=== PATIENT | female | born 1995 | race Caucasian/White ===

== ENCOUNTER 2024-04-13 14:20 | Emergency (ER) | payer OTHER, SELFPAY ==
[2024-04-13 14:24] VITALS: BP 143/94; PULSE 114; TEMP 37.2; O2SAT 97
--- NOTE | 2024-04-13 14:31 | XR_ITS ---
The [address] [address] Patient Name: NESHA AVALOS MRN: [id number] date: 1995 Sex: F Assigned Patient Location: ER Current Patient Location: ER Accession/Order Number: [id number] Exam Date: 04/13/2024 15:00 Report Date: 04/13/2024 15:43 At the request of: MAURICE BLOUNT Procedure: XR chest 2V EXAM: XR chest 2V HISTORY: Cough COMPARISON: None. TECHNIQUE: Frontal view of the chest. FINDINGS: No focal consolidations or pleural effusions. Cardiomediastinal silhouette is unremarkable. Visualized osseous structures are unremarkable. XR/XR chest 2V IMPRESSION: No acute disease. Electronically authenticated by: PRATIK PEREZ Date: 04/13/2024 15:43
[2024-04-13 14:48] VITALS: PULSE 107
[2024-04-13 14:50] LABS: Influenza Virus A Antigen Negative; Influenza Virus B Antigen Negative; Internal Control Within Normal Limits; SARS-CoV-2 Ag NEGATIVE (NEGATIVE)
--- NOTE | 2024-04-13 14:56 | ED.GENADUL1 ---
HPI HPI - General Adult General Chief complaint: Upper Respiratory Infection Stated complaint: URTI COMPLAINTS Time Seen by Provider: 04/13/24 14:23 Source: patient Mode of arrival: walk-in History of Present Illness HPI narrative: Patient presents to ED complaining of upper respiratory infection symptoms. Patient's had a cough and some ear pressure for the past few days. She does have a history of asthma and she feels like she is wheezing a little bit. She said her inhaler does not seem to be working and her father has her nebulizer machine in [place]. Her heart rate is slightly elevated. Temp of 99. Oxygen saturation is 97. Related Data Previous Rx's ?Medication ?Instructions ?Recorded azithromycin 500 mg tablet See Rx Instructions PO .COMPLEX #9 04/13/24 (Zithromax TRI-NOLVIA) tabs ipratropium 0.5 mg-albuterol 3 mg 3 ml inhalation Q6H PRN wheezing 04/13/24 (2.5 mg base)/3 mL nebulization #90 mL soln prednisone 20 mg tablet 20 mg PO BID #20 tabs 04/13/24 Allergies Allergy/AdvReac Type Severity Reaction Status Date / Time doxycycline Allergy Severe Nausea Verified 04/13/24 14:29 NSAIDS (Non-Steroidal Allergy Severe Anaphylaxis Verified 04/13/24 14:29 Anti-Inflamma Penicillins Allergy Severe Anaphylaxis Verified 04/13/24 14:29 Opioid HPI Opioid Management Most Recent Opioid Data: Last ED Pain Assessment 04/13/24 14:30 Review of Systems ROS Status of ROS 10 or more systems reviewed and unremarkable except as noted in history and below Exam Narrative Exam Narrative: Time Seen: [] Vital Signs: [Per nurse's notes.] General: [Alert] Skin: [Warm, dry, no rash.] Head: [Normocephalic, atraumatic.] Neck: [Supple, trachea midline.] Eye: [Pupils are equal, round and reactive to light, extraocular movements are intact, normal conjunctiva.] Ears, nose, mouth and throat: oral mucosa moist. Cardiovascular: [Regular rate and rhythm, no murmur.] Respiratory: [Mild inspiratory expiratory wheezing bilaterally, no acute respiratory distress, respirations are non-labored, breath sounds are equal.] Chest wall: [No tenderness, no deformity.] Gastrointestinal: [Soft, nontender, non distended, normal bowel sounds.] MSK: 5 out of 5 muscle strength x 4 extremities no calf pain or edema Lymphatics: [No lymphadenopathy.] Psychiatric: [Cooperative, appropriate mood & affect.] Neurological: [Alert and oriented to person, place, time, and situation, no focal neurological deficit observed.] Constitutional Vital Signs, click to edit/add: Last Vital Signs Temp 99.0 F 04/13/24 14:24 Pulse 107 H 04/13/24 14:48 Resp 16 04/13/24 14:24 BP 143/94 H 04/13/24 14:24 Pulse Ox 97 04/13/24 14:24 O2 Del Method Room Air 04/13/24 14:48 Course Vital Signs Vital signs: Vital Signs Temperature 99.0 F 04/13/24 14:24 Pulse Rate 114 H 04/13/24 14:24 Respiratory Rate 16 04/13/24 14:24 Blood Pressure 143/94 H 04/13/24 14:24 Pulse Oximetry 97 04/13/24 14:24 Oxygen Delivery Method Room Air 04/13/24 14:24 Temperature 99.0 F 04/13/24 14:24 Pulse Rate 107 H 04/13/24 14:48 Respiratory Rate 16 04/13/24 14:24 Blood Pressure 143/94 H 04/13/24 14:24 Pulse Oximetry 97 04/13/24 14:24 Oxygen Delivery Method Room Air 04/13/24 14:48 Medical Decision Making MDM Narrative Medical decision making narrative: Patient's chest x-ray does not show any acute pneumonia. Patient reports productive cough however. She does have a history of asthma and wheezing on exam. She feels better with DuoNeb treatment. She said her Inhaler was not working well at home. I wrote a prescription for a nebulizer machine with DuoNeb medication. Also steroids and a Z-Nolvia. Return to ED if worsening symptoms otherwise follow-up outpatient. Differential Diagnosis Differential Diagnosis: Pneumonia upper respiratory infection bronchitis Medical Records Medical records reviewed: Yes I reviewed the patient's medical records Lab Data Lab results reviewed: Yes I reviewed the patient's lab results Labs: Lab Results 04/13/24 Range/Units 14:25 Influenza Type A Ag Negative Influenza Type B Ag Negative SARS-CoV-2 Ag (CV2AG) Negative (NEGATIVE) Imaging Data Chest x-ray: Radiologist's impression: ITS Impressions Chest X-Ray 04/13/24 14:31 IMPRESSION: No acute disease. Electronically authenticated by: PRATIK PEREZ Date: 04/13/2024 15:43 Discharge Plan Discharge Stand Alone Forms: Portal Instructions Chief Complaint: Upper Respiratory Infection Clinical Impression: Upper respiratory infection, Bronchitis Patient Disposition: Home, Self-Care Time of Disposition Decision: 15:51 Condition: Good Mode of Transportation: Private Vehicle Prescriptions / Home Meds: New azithromycin [Zithromax TRI-NOLVIA] 500 mg tablet See Rx Instructions .ROUTE .COMPLEX Qty: 9 0RF Rx Instructions: For 250 mg dose pack: take 500 mg today (day 1), then 250 mg for 4 days (days 2-5) prednisone 20 mg tablet 20 mg PO BID Qty: 20 0RF Rx Instructions: SEE TAPER: 60 mg po daily x 2 days 50 mg x 2 days 40 mg x 2 days 30 mg x 2 days 20 mg x 2 days 10 mg x 2 days ipratropium-albuterol 0.5 mg-3 mg(2.5 mg base)/3 mL solution for nebulization 3 ml inhalation Q6H PRN (Reason: wheezing) Qty: 90 0RF Print Language: Kazakh Instructions: Acute Bronchitis (ED) Referrals: Physician,Non-Staff, MD [Primary Care Provider] - 1 week
[2024-04-13 16:01] VITALS: BP 133/79; PULSE 102; TEMP 37.3; O2SAT 97
== END 2024-04-13 16:04 | disposition home or self-care (01) ==
PROVIDERS: Emergency Provider Emergency Medicine
DX: J06.9 Acute upper respiratory infection, unspecified (principal); J45.909 Unspecified asthma, uncomplicated; Z20.822 Contact with and (suspected) exposure to COVID-19
CPT/HCPCS: 71046; 87804; 87811; 94640; 99284; 99406

== ENCOUNTER 2024-12-03 12:09 | Emergency (ER) | payer OTHER, SELFPAY ==
[2024-12-03 12:18] VITALS: BP 121/79; PULSE 92; TEMP 36.8; O2SAT 99; BMI 41.0
--- NOTE | 2024-12-03 13:00 | ED.GENADUL1 ---
HPI HPI - General Adult General Chief complaint: Shortness of Breath/Dyspnea Stated complaint: URTI COMPLAINTS Time Seen by Provider: 12/03/24 12:11 Source: patient Mode of arrival: walk-in Limitations: no limitations History of Present Illness HPI narrative: Patient presents to ED complaining of shortness of breath and wheezing. Patient has a history of asthma. She said she has used her inhaler and it is empty now because she has had to use it a lot more than her normal. She said she started with a cough and cold symptoms about a week ago and its progressively gotten worse. She has tried [id number] medications without help. She does have a history of asthma but is not on steroids chronically. She does not have a nebulizer machine at home she has an inhaler. She has had to be admitted in the past for her asthma. She denies coughing up anything thick or green but states that it is coming out of her nose. She said she gets chronic sinus infections. Patient states she had any fevers. Her heart rate is in the 90s here her respirations are increased in the mid 20s. No fever here and she is 96 to 99% on room air. No acute respiratory distress but she is wheezing. Related Data Home Medications ?Medication ?Instructions ?Recorded ?Confirmed albuterol sulfate 90 mcg/actuation 1 puff inhalation Q4H PRN 12/03/24 12/03/24 aerosol inhaler shortness of breath or wheezing cetirizine 10 mg tablet 20 mg PO Q12H 12/03/24 12/03/24 dextroamphetamine-amphetamine ER 10 mg PO QAM 12/03/24 12/03/24 10 mg 24hr capsule,extend release famotidine 20 mg tablet 20 mg PO BID 12/03/24 12/03/24 fluticasone propionate 93 2 spray intranasal .QD 12/03/24 12/03/24 mcg/actuation breath activated aerosol (Xhance) montelukast 10 mg tablet 10 mg PO .QHS 12/03/24 12/03/24 Previous Rx's ?Medication ?Instructions ?Recorded albuterol sulfate 90 mcg/actuation 1 inh inhalation Q6H PRN shortness 12/03/24 aerosol inhaler of breath or wheezing #8.5 grams ipratropium 0.5 mg-albuterol 3 mg 3 ml inhalation Q6H PRN shortness 12/03/24 (2.5 mg base)/3 mL nebulization of breath or wheezing #90 mL soln levofloxacin 500 mg tablet 500 mg PO DAILY 7 days #7 tabs 12/03/24 methylprednisolone 4 mg tablets in 4 mg PO DAILY #21 ea 12/03/24 a dose pack (Medrol (Michel)) Allergies Allergy/AdvReac Type Severity Reaction Status Date / Time doxycycline Allergy Severe Nausea Verified 12/03/24 13:42 NSAIDS (Non-Steroidal Allergy Severe Anaphylaxis Verified 12/03/24 13:42 Anti-Inflamma Penicillins Allergy Severe Anaphylaxis Verified 12/03/24 13:42 Opioid HPI Opioid Management Most Recent Opioid Data: No Data to Display Review of Systems ROS Status of ROS 10 or more systems reviewed and unremarkable except as noted in history and below PFSH PFSH Social History Little interest or pleasure in doing things: not at all Feeling down, depressed, or hopeless: not at all Exam Narrative Exam Narrative: Time Seen: [] Vital Signs: [Per nurse's notes.] General: [Alert] Skin: [Warm, dry, no rash.] Head: [Normocephalic, atraumatic.] Neck: [Supple, trachea midline.] Eye: [Pupils are equal, round and reactive to light, extraocular movements are intact, normal conjunctiva.] Ears, nose, mouth and throat: oral mucosa moist. Cardiovascular: [Regular rate and rhythm, no murmur.] Respiratory: [Inspiratory expiratory wheezing, tachypnea, no acute respiratory distress. No hypoxia. Gastrointestinal: [Soft, nontender, non distended, normal bowel sounds.] MSK: 5 out of 5 muscle strength x 4 extremities no calf pain or edema Psychiatric: [Cooperative, appropriate mood & affect.] Neurological: [Alert and oriented to person, place, time, and situation, no focal neurological deficit observed.] Constitutional Vital Signs, click to edit/add: Last Vital Signs Temp 98.2 F 12/03/24 12:18 Pulse 93 H 12/03/24 13:01 Resp 16 12/03/24 13:01 BP 121/79 12/03/24 12:18 Pulse Ox 99 12/03/24 12:18 O2 Del Method Room Air 12/03/24 13:01 Course Vital Signs Vital signs: Vital Signs Temperature 98.2 F 12/03/24 12:18 Pulse Rate 92 H 12/03/24 12:18 Respiratory Rate 24 H 12/03/24 12:18 Blood Pressure 121/79 12/03/24 12:18 Pulse Oximetry 99 12/03/24 12:18 Oxygen Delivery Method Room Air 12/03/24 12:18 Temperature 98.2 F 12/03/24 12:18 Pulse Rate 93 H 12/03/24 13:01 Respiratory Rate 16 12/03/24 13:01 Blood Pressure 121/79 12/03/24 12:18 Pulse Oximetry 99 12/03/24 12:18 Oxygen Delivery Method Room Air 12/03/24 13:01 Medical Decision Making MDM Narrative Medical decision making narrative: Patient was feeling better after her first treatment but still slightly wheezy. I did give her a second DuoNeb here in ED and she was sounding much more clear and she was more comfortable. Chest x-ray shows left upper lobe pneumonia. Patient was given IV antibiotics here prior to discharge. Patient will be sent home with a prescription for oral antibiotics a steroid pack a new rescue inhaler because she ran out of hers. She will also be given DuoNeb solution. She does have a nebulizer machine at home and she took the tubing from here because hers was old. Return to ED if worsening shortness of breath or difficulty breathing. Follow-up with family doctor. Take the medications as directed. Patient is comfortable with care plan for home Differential Diagnosis Differential Diagnosis: Pneumonia exacerbation and URI COVID flu Medical Records Medical records reviewed: Yes I reviewed the patient's medical records Lab Data Lab results reviewed: Yes I reviewed the patient's lab results Labs: Lab Results 12/03/24 12/03/24 Range/Units 13:30 13:36 WBC 7.1 (4.0-11.0) 10^3/uL RBC 4.98 (4.20-5.40) 10^6/uL Hgb 13.9 (12.0-16.0) g/dL Hct 41.6 (36.0-48.0) % MCV 83.5 (81.0-99.0) fL MCH 27.9 (26.7-34.0) pg MCHC 33.4 (29.9-35.2) g/dL RDW 12.6 (11.0-15.0) % Plt Count 317 (150-450) 10^3/uL MPV 10.1 (9.5-13.5) fL Neut % (Auto) 46.5 (43.0-75.0) % Lymph % (Auto) 36.9 (20.5-60.0) % [place] % (Auto) 7.0 (1.7-12.0) % Eos % (Auto) 9.1 H (0.9-7.0) % Baso % (Auto) 0.4 (0.2-2.0) % Neut # (Auto) 3.3 (1.4-6.5) 10^3/uL Lymph # (Auto) 2.6 (1.2-3.8) 10^3/uL [place] # (Auto) 0.5 (0.3-0.8) 10^3/uL Eos # (Auto) 0.7 (0.0-0.7) 10^3/uL Baso # (Auto) 0.0 (0.0-0.1) 10^3/uL Abs Immat Gran (auto) 0.01 (0.00-0.03) 10^3/uL Imm/Tot Granulo (auto) 0.1 (0.0-0.5) % Sodium 136 (136-145) mmol/L Potassium 3.7 (3.5-5.1) mmol/L Chloride 101 (98-107) mmol/L Carbon Dioxide 28.7 (21.0-32.0) mmol/L Anion Gap 10.0 BUN 20.0 H (7.0-18.0) mg/dL Creatinine 1.03 H (0.55-1.02) mg/dL Est GFR ( Amer) >60 (>=60 mL/min/1.73m^2) Est GFR (Non-Af Amer) >60 (>=60 mL/min/1.73m^2) BUN/Creatinine Ratio 19.4 Glucose 98 (74-106) mg/dL Calcium 9.7 (8.5-10.1) mg/dL Total Bilirubin 0.3 (0.2-1.0) mg/dL AST 13 L (15-37) U/L ALT 26 (14-59) U/L Alkaline Phosphatase 104 (46-116) U/L Total Protein 8.5 H (6.4-8.2) g/dL Albumin 3.5 (3.4-5.0) g/dL Globulin 5.0 g/dL Albumin/Globulin Ratio 0.7 Influenza Type A Ag Negative Influenza Type B Ag Negative SARS-CoV-2 Ag (CV2AG) Negative (NEGATIVE) Imaging Data Chest x-ray: Attestation: I have reviewed the pertinent imaging results. Discharge Plan Discharge Chief Complaint: Shortness of Breath/Dyspnea Clinical Impression: Pneumonia, Asthma Patient Disposition: Home, Self-Care Time of Disposition Decision: 15:36 Condition: Good Mode of Transportation: Private Vehicle Prescriptions / Home Meds: New albuterol sulfate 90 mcg/actuation HFA aerosol inhaler 1 inh inhalation Q6H PRN (Reason: shortness of breath or wheezing) Qty: 8.5 0RF methylprednisolone [Medrol (Michel)] 4 mg tablets,dose pack 4 mg PO DAILY Qty: 21 0RF Rx Instructions: disp one michel use as directed ipratropium-albuterol 0.5 mg-3 mg(2.5 mg base)/3 mL solution for nebulization 3 ml inhalation Q6H PRN (Reason: shortness of breath or wheezing) Qty: 90 0RF levofloxacin 500 mg tablet 500 mg PO DAILY 7 Days Qty: 7 0RF No Action cetirizine 10 mg tablet 20 mg PO Q12H famotidine 20 mg tablet 20 mg PO BID dextroamphetamine-amphetamine 10 mg capsule,extended release 24hr 10 mg PO QAM montelukast 10 mg tablet 10 mg PO .QHS albuterol sulfate 90 mcg/actuation HFA aerosol inhaler 1 puff INHALATION Q4H PRN (Reason: shortness of breath or wheezing) Xhance 93 mcg/actuation aerosol breath activated 2 spray INTRANASAL .QD Print Language: Divehi Instructions: Asthma (ED), Pneumonia (ED) Referrals: [facility] [Primary Care Provider] - 1 week
[2024-12-03 13:01] VITALS: PULSE 93
[2024-12-03] MEDS: IPRATROPIUM/ALBUTEROL SULFATE 3 ML AMPUL.NEB IH ×2 (13:01→15:06)
[2024-12-03] MEDS: DEXAMETHASONE SOD PHOS 10 MG/ML VIAL IV (13:47)
[2024-12-03 13:49] LABS: Basophils Percent Auto 0.4 % (0.2-2.0); Eosinophils Absolute Auto 0.7 10^3/uL (0.0-0.7); Eosinophils Percent Auto 9.1 % (0.9-7.0); Hematocrit 41.6 % (36.0-48.0); Hemoglobin 13.9 g/dL (12.0-16.0); Immature Granulocytes Abs Auto 0.01 10^3/uL (0.00-0.03); Immature Granulocytes Pct Auto 0.1 % (0.0-0.5); Lymphocytes Absolute Auto 2.6 10^3/uL (1.2-3.8); Lymphocytes Percent Auto 36.9 % (20.5-60.0); Mean Corpuscular HGB Conc 33.4 g/dL (29.9-35.2); Mean Corpuscular Hemoglobin 27.9 pg (26.7-34.0); Mean Corpuscular Volume 83.5 fL (81.0-99.0); Mean Platelet Volume 10.1 fL (9.5-13.5); Monocytes Absolute Auto 0.5 10^3/uL (0.3-0.8); Neutrophils Absolute Auto 3.3 10^3/uL (1.4-6.5); Neutrophils Percent Auto 46.5 % (43.0-75.0); Platelet Count 317 10^3/uL (150-450); Red Blood Count 4.98 10^6/uL (4.20-5.40); Red Cell Distribution Width 12.6 % (11.0-15.0); White Blood Count 7.1 10^3/uL (4.0-11.0)
[2024-12-03 13:55] LABS: Influenza Virus A Antigen Negative; Influenza Virus B Antigen Negative; Internal Control Within Normal Limits; SARS-CoV-2 Ag NEGATIVE (NEGATIVE)
[2024-12-03 14:03] LABS: Alanine Aminotransferase 26 U/L (14-59); Albumin Globulin Ratio 0.7; Albumin Level 3.5 g/dL (3.4-5.0); Alkaline Phosphatase 104 U/L (46-116); Aspartate Amino Transferase 13 U/L (15-37); BUN Creatinine Ratio 19.4; Bilirubin Total 0.3 mg/dL (0.2-1.0); Calcium 9.7 mg/dL (8.5-10.1); Carbon Dioxide 28.7 mmol/L (21.0-32.0); Chloride 101 mmol/L (98-107); Estimated GFR (African America >60 (>=60 mL/min/1.73m^2); Estimated GFR (Non-African Ame >60 (>=60 mL/min/1.73m^2); Glucose 98 mg/dL (74-106); Potassium 3.7 mmol/L (3.5-5.1); Sodium 136 mmol/L (136-145); Total Protein 8.5 g/dL (6.4-8.2)
[2024-12-03] MEDS: LEVOFLOXACIN IN DEXTROSE 5 % 750 MG/150 ML PREMIX 100 MG IV (15:02)
[2024-12-03 16:31] VITALS: BP 153/94; PULSE 103; O2SAT 95
== END 2024-12-03 16:47 | disposition home or self-care (01) ==
PROVIDERS: Emergency Provider Emergency Medicine
DX: J18.9 Pneumonia, unspecified organism (principal); J45.909 Unspecified asthma, uncomplicated
CPT/HCPCS: 36415; 71045; 80053; 85025; 87804; 87811; 94640; 96365; 96366; 96375; 99285; J1100

== ENCOUNTER 2025-01-03 13:52 | Emergency (ER) | payer OTHER, SELFPAY ==
[2025-01-03 13:56] VITALS: BP 167/99; PULSE 89; TEMP 36.7; O2SAT 98; BMI 34.4
--- NOTE | 2025-01-03 14:06 | ED.GENADUL1 ---
HPI HPI - General Adult General Chief complaint: Extremity Injury, Upper Stated complaint: Extremity Injury, Upper Time Seen by Provider: 01/03/25 13:53 Source: patient Mode of arrival: walk-in Limitations: no limitations History of Present Illness HPI narrative: 29-year-old female presents for pain to the left hand, specifically at the fifth finger and fifth metacarpal area. 1 hour ago she was fishing and she fell and hit it on rocks. No other injury was sustained. The pain is worse when she moves. Related Data Home Medications ?Medication ?Instructions ?Recorded ?Confirmed albuterol sulfate 90 mcg/actuation 1 puff inhalation Q4H PRN 12/03/24 12/03/24 aerosol inhaler shortness of breath or wheezing cetirizine 10 mg tablet 20 mg PO Q12H 12/03/24 12/03/24 dextroamphetamine-amphetamine ER 10 mg PO QAM 12/03/24 12/03/24 10 mg 24hr capsule,extend release famotidine 20 mg tablet 20 mg PO BID 12/03/24 12/03/24 fluticasone propionate 93 2 spray intranasal .QD 12/03/24 12/03/24 mcg/actuation breath activated aerosol (Xhance) montelukast 10 mg tablet 10 mg PO .QHS 12/03/24 12/03/24 Previous Rx's ?Medication ?Instructions ?Recorded albuterol sulfate 90 mcg/actuation 1 inh inhalation Q6H PRN shortness 12/03/24 aerosol inhaler of breath or wheezing #8.5 grams hydrocodone-homatropine 5 mg-1.5 5 ml PO Q6H PRN cough #60 mL 12/03/24 mg/5 mL (5 mL) oral solution (Hycodan) ipratropium 0.5 mg-albuterol 3 mg 3 ml inhalation Q6H PRN shortness 12/03/24 (2.5 mg base)/3 mL nebulization of breath or wheezing #90 mL soln levofloxacin 500 mg tablet 500 mg PO DAILY 7 days #7 tabs 12/03/24 methylprednisolone 4 mg tablets in 4 mg PO DAILY #21 ea 12/03/24 a dose pack (Medrol (Michel)) Allergies Allergy/AdvReac Type Severity Reaction Status Date / Time doxycycline Allergy Severe Nausea Verified 12/03/24 13:42 NSAIDS (Non-Steroidal Allergy Severe Anaphylaxis Verified 12/03/24 13:42 Anti-Inflamma Penicillins Allergy Severe Anaphylaxis Verified 12/03/24 13:42 Opioid HPI Opioid Management Most Recent Opioid Data: Last Pain Scale 4 01/03/25 14:02 01/03/25 Review of Systems ROS Narrative A ten point review of systems is negative except as noted above. PFSH PFSH Social History Little interest or pleasure in doing things: not at all Feeling down, depressed, or hopeless: not at all Exam Narrative Exam Narrative: Nurses note and vital signs reviewed and patient is not hypoxic. General: The patient appears well and in no apparent distress. Patient is resting comfortably on cart. Skin: Warm, dry, no pallor noted. There is no rash noted. Head: Normocephalic, atraumatic Eye: Normal conjunctiva, no drainage Ears, Nose, Mouth, and Throat: oral mucosa is moist. Nares patent. Cardiovascular: Regular Rate and Rhythm Respiratory: Patient is in no distress, no accessory muscle use Back: non-tender GI: Soft and nontender Musculoskeletal: The left hand is examined. There is no deformity. She has some tenderness in the fifth metacarpal area and the fifth finger. Wrist is not tender. Neurological: A&O, normal speech Psychiatric: Cooperative Constitutional Vital Signs, click to edit/add: Last Vital Signs Temp 98.1 F 01/03/25 13:56 Pulse 89 01/03/25 13:56 Resp 18 01/03/25 13:56 BP 167/99 H 01/03/25 13:56 Pulse Ox 98 01/03/25 13:56 O2 Del Method Room Air 01/03/25 13:56 Course Vital Signs Vital signs: Vital Signs Temperature 98.1 F 01/03/25 13:56 Pulse Rate 89 01/03/25 13:56 Respiratory Rate 18 01/03/25 13:56 Blood Pressure 167/99 H 01/03/25 13:56 Pulse Oximetry 98 01/03/25 13:56 Oxygen Delivery Method Room Air 01/03/25 13:56 Temperature 98.1 F 01/03/25 13:56 Pulse Rate 89 01/03/25 13:56 Respiratory Rate 18 01/03/25 13:56 Blood Pressure 167/99 H 01/03/25 13:56 Pulse Oximetry 98 01/03/25 13:56 Oxygen Delivery Method Room Air 01/03/25 13:56 Medical Decision Making MDM Narrative Medical decision making narrative: X-ray of the hand on my interpretation shows no acute findings. Cornelio wrap applied. Application checked by me and found to be appropriate, she is neurovascular intact. Treatment diagnosis and follow-up were discussed with the patient. Differential Diagnosis Differential Diagnosis: Contusion, fracture Imaging Data Left hand x-ray: My impression: No acute finding Discharge Plan Discharge Chief Complaint: Extremity Injury, Upper Clinical Impression: Contusion of left hand Patient Disposition: Home, Self-Care Time of Disposition Decision: 14:47 Condition: Good Mode of Transportation: Private Vehicle Prescriptions / Home Meds: No Action cetirizine 10 mg tablet 20 mg PO Q12H famotidine 20 mg tablet 20 mg PO BID dextroamphetamine-amphetamine 10 mg capsule,extended release 24hr 10 mg PO QAM montelukast 10 mg tablet 10 mg PO .QHS albuterol sulfate 90 mcg/actuation HFA aerosol inhaler 1 puff INHALATION Q4H PRN (Reason: shortness of breath or wheezing) Xhance 93 mcg/actuation aerosol breath activated 2 spray INTRANASAL .QD albuterol sulfate 90 mcg/actuation HFA aerosol inhaler 1 inh inhalation Q6H PRN (Reason: shortness of breath or wheezing) Qty: 8.5 0RF methylprednisolone [Medrol (Michel)] 4 mg tablets,dose pack 4 mg PO DAILY Qty: 21 0RF Rx Instructions: disp one michel use as directed ipratropium-albuterol 0.5 mg-3 mg(2.5 mg base)/3 mL solution for nebulization 3 ml inhalation Q6H PRN (Reason: shortness of breath or wheezing) Qty: 90 0RF levofloxacin 500 mg tablet 500 mg PO DAILY 7 Days Qty: 7 0RF hydrocodone-homatropine [Hycodan] 5-1.5 mg/5 mL (5 mL) syrup 5 ml PO Q6H PRN (Reason: cough) Qty: 60 0RF Print Language: Hebrew Instructions: Contusion in Adults (ED) Referrals: FAMILY[facility] [Primary Care Provider] - 1 week
== END 2025-01-03 15:08 | disposition home or self-care (01) ==
PROVIDERS: Emergency Provider Emergency Medicine
DX: S60.222A Contusion of left hand, initial encounter (principal); W18.39XA Other fall on same level, initial encounter
CPT/HCPCS: 73130; 99283